=== PATIENT | male | born 1955 | race Caucasian/White ===

== ENCOUNTER 2020-11-07 23:47 | Emergency (ER) | payer BC ==
[2020-11-08] MEDS ORDERED: BUSPIRONE HYDRO10 MG PO (00:22)
[2020-11-08] MEDS ORDERED: ALLOPURINOL300 M1 PO (00:22)
[2020-11-08] MEDS ORDERED: VITAMIN D3250 MC2 PO (00:23)
[2020-11-08 00:24] LABS: URINE WBC 0 /hpf (0-3)
[2020-11-08] MEDS ORDERED: CLINDAMYCIN 300MG PO (00:24)
[2020-11-08] MEDS ORDERED: CLOPIDOGREL PO (00:25)
[2020-11-08] MEDS ORDERED: TRANXENE T PO (00:25)
[2020-11-08] MEDS ORDERED: MORGIDOX 1X100100 MG PO (00:26)
[2020-11-08] MEDS ORDERED: CYCLOBENZAPRINE10 M1 PO (00:26)
[2020-11-08] MEDS ORDERED: ELIQUIS5 MG PO (00:27)
[2020-11-08 00:28] LABS: BASO # 0.03 (0.02-0.10); EOS % 2.1 % (0.0-4.0); HEMATOCRIT 48.3 % (42.0-52.0); HEMOGLOBIN 15.5 g/dL (13.5-18.0); LYMPH# 2.01 (1.50-4.00); MEAN CELL VOLUME 93 fl (78-100); MEAN CORPUSCULAR HEMOGLOBIN 30 pg (27-31); MEAN CORPUSCULAR HGB CONC 32 g/dL (33-37); MEAN PLATELET VOLUME 11.6 fl (7.4-10.4); MONO # 0.56 (0.20-0.80); NEU # 6.78 (1.40-6.50); PLATELET COUNT 160 K/mm3 (130-400); RED BLOOD COUNT 5.18 M/mm3 (4.20-5.60); RED CELL DISTRIBUTION WIDTH 15.4 % (11.5-14.5); WHITE BLOOD COUNT 9.6 K/mm3 (4.8-10.8)
[2020-11-08] MEDS ORDERED: DIFLUCAN100 M1 PO (00:28)
[2020-11-08] MEDS ORDERED: AMARYL4 M1 PO (00:29)
[2020-11-08] MEDS ORDERED: ZESTRIL2.5 M1 PO (00:29)
[2020-11-08] MEDS ORDERED: LOPRESSOR 225 MG/TAB PO (00:30)
[2020-11-08] MEDS ORDERED: METFORMIN ER500 MG PO (00:30)
[2020-11-08 00:31] LABS: ALBUMIN 3.9 g/dL (3.4-4.8)
[2020-11-08] MEDS ORDERED: PANTOPRAZOLE SO40 MG PO (00:31)
[2020-11-08] MEDS ORDERED: NITROSTAT0.4 M1 SL (00:31)
[2020-11-08 00:33] LABS: CALCIUM 9.5 mg/dL (8.3-10.5)
[2020-11-08 00:34] LABS: TOTAL PROTEIN 7.3 g/dL (6.2-8.1)
[2020-11-08 00:35] LABS: POTASSIUM 4.4 mmol/L (3.5-5.1)
[2020-11-08 00:36] LABS: TOTAL BILIRUBIN 1.6 mg/dL (0.2-1.2)
[2020-11-08 01:06] LABS: D-DIMER 0.32 mg/L FEU (0.15-0.50)
[2020-11-08 01:24] LABS: URINE APPEARANCE CLEAR; URINE BILIRUBIN 1+ (NEGATIVE); URINE COLOR YELLOW; URINE GLUCOSE NEGATIVE (NEGATIVE); URINE KETONE NEGATIVE (NEGATIVE); URINE PROTEIN(semi-quant) 1+ mg/dL (NEGATIVE); URINE UROBILINOGEN NORMAL (NORMAL)
[2020-11-08 01:25] LABS: URINE BLOOD NEGATIVE (NEGATIVE); URINE LEUKOCYTE ESTERASE NEGATIVE (NEGATIVE); URINE MUCUS PRESENT (NOT PRESENT); URINE NITRATE NEGATIVE (NEGATIVE)
[2020-11-08 04:58] VITALS: BP 128/88
== END 2020-11-08 04:58 | disposition short-term general hospital (02) ==
LOC: ED 23:47
PROVIDERS: Nurse Practitioner
DX: I21.4 Non-ST elevation (NSTEMI) myocardial infarction (principal); I48.91 Unspecified atrial fibrillation; N17.9 Acute kidney failure, unspecified; E11.9 Type 2 diabetes mellitus without complications; I10 Essential (primary) hypertension; I25.2 Old myocardial infarction; Z20.822 Contact with and (suspected) exposure to COVID-19; Z95.5 Presence of coronary angioplasty implant and graft; Z79.01 Long term (current) use of anticoagulants; Z79.84 Long term (current) use of oral hypoglycemic drugs
CPT/HCPCS: J2270; J2405; J7030

== ENCOUNTER 2020-12-17 20:27 | Emergency (ER) | payer MEDICARE, BC ==
[~2020-12-17 20:27] MED LIST: ALLOPURINOL300 M1 PO; AMARYL4 M1 PO; BUSPIRONE HYDRO10 MG PO; CLINDAMYCIN 300MG PO; CLOPIDOGREL PO; CYCLOBENZAPRINE10 M1 PO; DIFLUCAN100 M1 PO; ELIQUIS5 MG PO; LOPRESSOR 225 MG/TAB PO; METFORMIN ER500 MG PO; MORGIDOX 1X100100 MG PO; NITROSTAT0.4 M1 SL; PANTOPRAZOLE SO40 MG PO; TRANXENE T PO; VITAMIN D3250 MC2 PO; ZESTRIL2.5 M1 PO
[2020-12-17 21:52] VITALS: BP 104/84
== END 2020-12-17 21:52 | disposition home or self-care (01) ==
LOC: ED 20:27
DX: K59.09 Other constipation (principal); I48.91 Unspecified atrial fibrillation; I25.2 Old myocardial infarction; Z90.49 Acquired absence of other specified parts of digestive tract; Z95.5 Presence of coronary angioplasty implant and graft